=== PATIENT | male | born 1985 | race Caucasian/White ===

== ENCOUNTER 2016-09-29 16:34 | Emergency (ER) | payer OTHER ==
[~2016-09-29] VITALS: Ht 175.3 cm; Wt 120.5 kg
[~2016-09-29 16:34] MED LIST: FLEXERIL10 MG PO; ULTRAM50 MG PO
[2016-09-29 16:41] VITALS: BP 114/86
[2016-09-29] MEDS ORDERED: AUGMENTIN875 MG PO (17:20)
[2016-09-29] MEDS ORDERED: CLINDAMYCIN HC150 MG PO (18:07)
== END 2016-09-29 18:24 | disposition home or self-care (01) ==
LOC: EME 16:34
DX: K04.7 Periapical abscess without sinus (principal); R22.0 Localized swelling, mass and lump, head
CPT/HCPCS: 99281; 99284

== ENCOUNTER 2017-09-05 06:37 | Emergency (ER) | payer OTHER ==
[~2017-09-05] VITALS: Ht 175.3 cm; Wt 115.8 kg
[~2017-09-05 06:37] MED LIST changes: +AUGMENTIN875 MG PO; +CLINDAMYCIN HC150 MG PO
[2017-09-05] MEDS ORDERED: MOTRIN800 MG PO (08:07)
[2017-09-05 08:34] VITALS: BP 125/80
== END 2017-09-05 08:35 | disposition home or self-care (01) ==
LOC: EME 06:37
PROC: 3E0234Z Introduction of Serum, Toxoid and Vaccine into Muscle, Percutaneous Approach (ICD-10-PCS; principal; 2017-09-05)
DX: S61.432A Puncture wound without foreign body of left hand, initial encounter (principal); W29.8XXA Contact with other powered hand tools and household machinery, initial encounter; Z23 Encounter for immunization; F41.9 Anxiety disorder, unspecified
CPT/HCPCS: 73130; 99281; 99284; J0690; J2270